=== PATIENT | female | born 1980 | race Caucasian/White ===

== ENCOUNTER 2025-03-05 22:27 | Emergency (ER) | payer MEDICAID, SELFPAY ==
[2025-03-05 22:29] VITALS: BP 145/103; PULSE 98; RESP 22; O2SAT 99
[2025-03-05] MEDS: LORazepam INJ (*CRX) 2 MG/ML VIAL (22:49)
[2025-03-05] MEDS: HALOPERIDOL LACTATE 5 MG/ML VIAL (22:49)
--- NOTE | 2025-03-05 23:00 | PC.NURSE ---
Pt combative and states, I want to kill myself because I am going through withdrawal.
--- NOTE | 2025-03-05 23:06 | PC.NURSE ---
Pt combative, and aggressive towards staff. Unable to redirect patient. Pt medicated per verbal order of MD Strange with 5mg Haldol and 2 ativan IM.
[2025-03-05 23:27] LABS: Basophils Percent Auto 0.6 % (0.2-1.2); Eosinophils Absolute Auto 0.6 K/mm3 (0-0.3); Eosinophils Percent Auto 9.4 % (0-4.4); Hematocrit 39.3 % (37.0-47.0); Hemoglobin 12.5 g/dL (12.0-15.0); Immature Granulocyte Absolute 0.01 K/mm3 (0.00-0.031); Immature Granulocyte Percent A 0.2 % (0-0.5); Lymphocytes Percent Auto 57.1 % (18.3-44.2); Mean Corpuscular HGB Conc 31.8 g/dl (32-36); Mean Corpuscular Hemoglobin 30.8 pg (26-34); Mean Corpuscular Volume 96.8 fl (80-100); Mean Platelet Volume 9.8 fl (7.4-10.4); Monocytes Absolute Auto 0.5 K/mm3 (0.1-0.6); Monocytes Percent Auto 7.8 % (2.6-8.5); Neutrophils Absolute Auto 1.6 K/mm3 (1.3-6.7); Neutrophils Percent Auto 24.9 % (45.5-73.1); Platelet Count Result 229 k/mm3 (150-375); Red Blood Count 4.06 M/mm3 (4.2-5.4); Red Cell Distribution Width 13.5 % (11.5-14.5); White Blood Count 6.3 K/mm3 (4.5-10.0)
[2025-03-05 23:29] LABS: BEDSIDEPREGUCG Negative (Negative)
[2025-03-05 23:33] LABS: Add Urine Microscopic? NO; Appearance Urine Clear (Clear); Bilirubin Urine Negative (Negative); Blood Urine Negative (Negative); Color Urine Yellow (Yellow); Glucose Urine UA Negative (Negative); Ketones Urine Negative (Negative); Leukocyte Esterase Ur Negative LEU/UL (Negative); Nitrate Urine Negative (Negative); Protein Urine Negative (Negative); Specific Grav Ur 1.015 (1.001-1.035)
[2025-03-05 23:39] LABS: Ethanol < 10 mg/dL (<10)
[2025-03-05 23:45] LABS: Alanine Aminotransferase 52 U/L (6-35); Albumin Level 4.3 g/dL (3.5-5.1); Alkaline Phosphatase 92 U/L (38-126); Anion Gap 7 mmol/L (4-12); Aspartate Amino Transferase 43 U/L (14-36); Bilirubin,Total 0.5 mg/dL (0.2-1.3); Blood Urea Nitrogen 9 mg/dL (7-17); Calcium 9.5 mg/dL (8.4-10.2); Carbon Dioxide 22 mmol/L (22-30); Chloride 107 mmol/L (98-107); Estimated Glomerular Filt Rate > 60; Glucose 80 mg/dL (65-110); Potassium 4.2 mmol/L (3.4-5.0); Sodium 136 mmol/L (137-145)
[2025-03-06 00:17] LABS: Barbiturate Screen Urine Negative (Negative); Benzodiazepines Screen Urine Positive (Negative)
[2025-03-06 00:18] LABS: Cocaine Screen Urine Positive (Negative)
[2025-03-06 00:19] LABS: Methadone Screen Urine Positive (Negative); Opiate Screen Urine Negative (Negative); Phencyclidine Screen Urine Negative (Negative)
[2025-03-06 00:20] LABS: Cannabinoid Screen Urine Negative (Negative)
[2025-03-06 00:21] LABS: Amphetamine Screen Urine Negative (Negative)
--- NOTE | 2025-03-06 00:25 | PC.NURSE ---
Per [place] [employer], pt is still in custody and have to be called once pt cleared for discharge.
[2025-03-06 00:53] LABS: Acetaminophen < 10 ug/mL (10-30); Salicylate < 1.0 mg/dL (2-20)
--- OUTSIDE RECORDS SUMMARY | 2025-03-06 01:05 | XMS_ITS | Continuity of Care Document ---
Author Name [facility] Address [address] [place] [address] Organization [facility] Care Team Providers Care Sales Representative [employer] Name Role Phone [facility] Unavailable Unavailable Problems Problem Status Onset Date Problem Type Date of Resolution Comme nts Source Finding related to substance use (finding) Active Condition Abnormal uterine and vaginal bleeding, unspecified Active Diagnosis Nicotine dependence (disorder) Diagnosis
--- OUTSIDE RECORDS SUMMARY | 2025-03-06 01:05 | XMS_ITS | Continuity of Care Document ---
Author Organization [facility] Address [address] [place] [address] Phone Care Team Providers Care Insurance Customer Service Specialist Name Role Phone Anni Jeffers LPC Unavailable Unavailable Allergies, Adverse Reactions, Alerts Substance Reaction Status Criticality No Known Allergies Active No Inform ation Medications Medication Instructions Dosage Effective Dates (start - stop) Status Comments Suboxone 8 mg-[address] 1 film by sublingual route 2 times every day allow to dissolve slowly in mouth without chewing or swallowing 1 film - Active 340b. Two week supply Celexa 20 mg tablet take 1 tablet by oral route every day 20 MG - Active Procedures Procedure Date DRUG TEST PRSMV DIR OPT OBS URINE TEST Not Completed DRUG TEST PRSMV DIR OPT OBS URINE TEST DRUG TEST PRSMV DIR OPT OBS URINE TEST DRUG TEST PRSMV DIR OPT OBS URINE TEST OFFICE/OUTPATIENT VISIT, EST DRUG TEST PRSMV DIR OPT OBS OFFICE/OUTPATIENT VISIT EST Telehealth J DRUG TEST PRSMV DIR OPT OBS DRUG TEST PRSMV DIR OPT OBS PSYCH DIAG EVAL W/MED SRVCS [facility] OFFICE/OUTPATIENT VISIT, EST PSYCH DIAGNOSTIC EVALUATION Not Completed OFFICE/OUTPATIENT VISIT, NEW Medrxyprogester acetate inj URINE TEST Advance Directives Directive Yes / No Effective Date File Name No Information Encounters Encounter Description Practice Location Reason(s) For Visit Diagnoses Date Provider Providers Copied on Encounter [facility], [address], [place], [place], [id number], [place] tel:[phone] [facility] No Information 0 Aury Hutton. [address], [place], [place], [id number], [place]. tel:[phone] [facility], [address], [place], [place], [id number], [place] tel:[phone] [facility] No Information 9 Harpreet Garibay. [address], [id number] [address] [place], [id number], [place]. tel:[phone] [facility], [address], [place], [place], [id number], [place] tel:[phone] [facility] No Information 9 Harpreet Garibay. [address], [id number] [address], [place], [place], [id number], [place]. tel:[phone] Referring Provider: Lani Mullins, [address] [id number] [place], [address]. tel:[phone] [facility], [address], [place], [place], [id number], [place] tel:[phone] [facility] No Information 9 Harpreet Lani. [address], [id number] [address], [place], [place], [id number], [place]. tel:[phone] [facility], [address], [place], [place], [id number], [place] tel:[phone] [facility] No Information Harpreet . [address], [id number] [address], [place], [place], [id number], [place]. tel:[phone] OFFICE/OUTPA TIENT VISIT, EST [facility], [address], [place], [place], [id number], [place] tel:[phone] [facility] Opioid dependence Harpreet . [address], [id number] [address], [place], [place], [id number], [place]. tel:[phone] Referring Provider: Lani Mullins, [address] [id number] [address], [place], [address]. tel:[phone] OFFICE/OUTPA TIENT VISIT EST Telehealth [facility], [address], [place], [place], [id number], [place] tel:[phone] [facility] Opioid dependence Harpreet . [address], [id number] [address], [place], [place], [id number], [place]. tel:[phone] Referring Provider: Lani Mullins, [address] [id number] [address], [place], [address]. tel:[phone] [facility], [address], [place], [place], [id number], [place] tel:[phone] [facility] No Information Harpreet . [address], [id number] [address], [place], [place], [id number], [place]. tel:[phone] PSYCH DIAG EVAL W/MED SRVCS Telehealth [facility], [address], [place], [place], [id number], [place] tel:[phone] [facility] Opioid dependence Harpreet . [address], [id number] [address], [place], [place], [id number], [place]. tel:[phone] Referring Provider: Lani Mullins, [address] [id number] [place], [address]. tel:[phone] [facility], [address], [place], [id number], [place] tel:[phone] [facility] Other substance-in duced deliriumOthe r psychoactive substance dependence, uncomplicate d Mar-0 9 Aury Hutton. [address], [place], [id number], [place]. tel:[phone] Referring Provider: Anni Jeffers, [address], [place], [address]. tel:[phone] OFFICE/OUTPA TIENT VISIT, EST [facility], [address], [place], [id number], [place] tel:[phone] [facility] AMP Physical (chief complaint) Body mass index (BMI) 26.0-26.9, adultTobacco useEncounter for adult health check-upMajo r depressionOp ioid dependence, uncomplicate d Nov-0 9 Cris Cedeno. [address], [id number] [place], [id number], [place]. tel:[phone] Referring Provider: Wilian Lynch, [address] [id number] [place], [address]. tel:[phone] PSYCH DIAGNOSTIC EVALUATION [facility], [address], [place], [id number], [place] tel:[phone] [facility] Severe opioid use disorderMajo r depression Oct-2 9 Earnest Hill. [address], [place], [id number], [place]. tel:[phone] Referring Provider: Liz Tinoco , [address], [place], [address]. tel:[phone] [facility], [address], [place], [id number], [place] tel:[phone] [facility] Other substance-in duced deliriumOthe r psychoactive substance dependence, uncomplicate d 9 Earnest Hill. [address] [facility], [place], [id number], [place]. tel:[phone] [facility], [address], [place], [id number], [place] tel:[phone] [facility] No Information 9 Earnest Hill. [address] [facility] ons [facility] [place], [place], [id number], [place]. tel:[phone] Referring Provider: Liz Tinoco , [address] [place] [address] ons [facility], [place], [address]. tel:[phone] OFFICE/OUTPA TIENT VISIT, NEW [facility], [address], [place], [place], [id number], [place] tel:[phone] [facility] painful menses (chief complaint)Pr ovider Information Hernan Espino PA-C (chief complaint) Obesity, unspecifiedM igraineEncou nter for initial prescription of injectable contracep 6 Srinivas Rodriguez. [address], [id number] 0, [place], [id number], [place]. tel:[phone] Family History Family Member Type Diagnosis Age At Onset Mother Problem (finding) Hepatitis C (Cause Of D eath) Father Problem (finding) drug addiction Father Problem (finding) Hepatitis C Mother Problem (finding) alcoholism Father Problem (finding) alcoholism Payers Payer name Insurance type Covered democrat ID Authoriza tion(s) No Information Social History Type Description Quantity Date Captured Comments Sex Female Smoking Status No Information Sexual Orientation Straight or heterosexual Gender Identity Female Chief Complaint And Reason For Visit No Information Reason For Referral Reason For Referral No Information Plan Of Treatment Date Type Action Status Goal Td vaccine. Due on due Goal Depression scree karissa. Due on due Goal Pap/HPV testing. Due on due Goal Influenza vaccine. Due on Oc due Goal Tdap. Due on due Goal HPV, high+low-risk. Due on O due Goal Diabetes screening. Due on O due Goal Diabetes screening. Due on O due Goal Influenza vaccine. Due on Oc due Goal HPV, high+low-risk. Due on O due Goal Tdap. Due on due Goal Depression scree karissa. Due on due Goal Pap/HPV testing. Due on due Goal Td vaccine. Due on due Goal HPV, high+low-risk. Due on due Goal Pap/HPV testing. Due on due Goal Influenza vaccine. Due on due Goal Td vaccine. Due on due Goal Diabetes screening. Due on A due Goal Depression scree karissa. Due on due Goal Tdap. Due on due Goal HPV, high+low-risk. Due on due Goal Td vaccine. Due on due Goal Tdap. Due on due Goal Depression scree karissa. Due on due Goal Influenza vaccine. Due on due Goal Pap/HPV testing. Due on due Goal Diabetes screening. Due on due Goal Depression scree karissa. Due on due Goal Influenza vaccine. Due on due Goal Td vaccine. Due on due Goal HPV, high+low-risk. Due on due Goal Tdap. Due on due Goal Tobacco cessation counseling completed Goal Depression scree karissa. Due on due Goal Influenza vaccine. Due on due Goal Td vaccine. Due on due Goal HPV, high+low-risk. Due on A due Goal Tdap. Due on due Goal Td vaccine. Due on due Goal HPV, high+low-risk. Due on due Goal Tdap. Due on due Goal Depression scree karissa. Due on due Goal Influenza vaccine. Due on due Goal Influenza vaccine. Due on due Goal Depression scree karissa. Due on due Goal Tdap. Due on due Goal HPV, high+low-risk. Due on due Goal Td vaccine. Due on due Goal Influenza vaccine. Due on due Goal Depression scree karissa. Due on due Goal Tdap. Due on due Goal HPV, high+low-risk. Due on due Goal Td vaccine. Due on 19 due Goal Tobacco cessation counseling completed Goal Dietary manageme nt education, guidance, and counseling completed Goal Depression scree karissa. Due on due Goal Influenza vaccine. Due on due Goal Tdap. Due on due Goal Td vaccine. Due on due Goal HPV, high+low-risk. Due on due Goal Tdap. Due on due Goal Depression scree karissa. Due on due Goal Influenza vaccine. Due on due Goal Td vaccine. Due on due Goal HPV, high+low-risk. Due on due Goal Tdap. Due on due Goal Depression scree karissa. Due on due Goal Influenza vaccine. Due on due Goal Td vaccine. Due on due Goal HPV, high+low-risk. Due on due Goal Dietary manageme nt education, guidance, and counseling completed Future Order: Lab Order Icup Dx 14 Panel Drug Screen (14), Ordered on: Ordered Future Order: Lab Order (7), Or dered on: Ordered Future Order: Lab Order Icup Dx 14 Panel Drug Screen (14), Ordered on: Ordered Future Order: Lab Order (7), Or dered on: Ordered Future Order: Lab Order Icup Dx 14 Panel Drug Screen (14), Ordered on: Ordered Future Order: Lab Order (7), Or dered on: Ordered Future Order: Lab Order CBC (INC LUDES DIFF/PLT) (6399), Ordered on: Ordered Future Order: Lab Order COMPREHE NSIVE METABOLIC PANEL (73200), Ordered on: Ordered Future Order: Lab Order HEMOGLOB IN A1C (496), Ordered on: Ordered Future Order: Lab Order LIPID PA KIMMY (7600), Ordered on: Ordered Future Order: Lab Order TSH, 3RD GENERATION (899), Ordered on: Ordered Future Order: Lab Order VITAMIN D,25-OH,TOTAL,IA ([id number]), Ordered on: Ordered Future Order: Lab Order COMPREHE NSIVE METABOLIC PANEL ([id number]), Ordered on: Ordered Future Order: Lab Order CBC (INC LUDES DIFF/PLT) (6399), Ordered on: Ordered History Of Present Illness Encounter Date Complaint History Of Prese nt Illness AMP Physical The location is N/A. Pt is present today for an AMP physical.Provider notes: Patient presents as a new patient for an exam for the addiction treatment program. painful menses Last menstrual p eriod was on 02/14/2016. Presenting / Initial symptoms include dysmenorrhea. Associated symptoms include acne, back pain, bloating, breast tenderness, decreased libido, difficulty sleeping, menstrual cramping, nausea, migraines and vaginal discharge. Pertinent negatives include alopecia, bleeding between menses, fatigue, hirsutism or hot flashes. Provider Information Hernan Espino PA-C Patient is a 35 y/o female that presents to the clinic for migraines and heavy menstrual bleeding. Patient states that she does not have a current PCP nor an HAND POLISHER.PMH - Viral Meningitis (2000)Surgical History - Cholecystectomy (2009) ; Skin grafts (2002) ; (2002) ; 1/2 right ovary removed (1992)FH - Maternal: Hepatitis C ; Paternal: Alcohol use, COPD, Hepatitis CSH - Tobacco: 1/2ppd ; denies alcohol use ; previous opiod abuser (clean for 17 months)1. Migraines - The patient states that she has migraines at least once a month, and that they have been increasing in number the past couple of months. The patient reports that she was actually in the ER this morning getting treatment for a headache. Patient states that that they start about two weeks before her menses start. The location is frontal lobes, with readitation to temporal lobes. ROS is positive for nausea, dizziness, pressure. Patient states that loud noises and light makes the headaches worse. Rest and a hot shower seems to help some. Patient is currently taking ibuprofen for the pain. 2. Menorrhagia - Patient reports that she has been having heavy, painful periods for the past 1 1/2 years. Patient reports that her periods are regular. Patient states that she is using at least 6 super absorbant tampons each day, usually a couple within 2-3 hours of each other. Patient has to utilize both tampons and pads to help with the bleeding. Patient reports that she has some clear, vaginal discharge that occurs a couple of days before her menses starts. ROS is positive for dysmenorrhagia. Patient denies any pelvic tenderness, dyspareunia, itching or burning. Patient has been on depo in the past, but stopped the injections due to her wanting to get . Patient states that she does smoke 1/2 ppd. Patient states that she had a PAP done last year, and that it came back WNL Functional Status Date Functional Assessmen t No Information Instructions Date Instruction Additional Infor liz Dietary management e ducation, guidance, and counseling Related to Body mass index (BMI) 26.0-26.9, adult Giving encouragement to exercise Related to Body mass index (BMI) 26.0-26.9, adult Start on metoprolol 25mg PO BID Related to Migraine Start on Depo Animal Care Supervisor a injectionFollow-up in three months Related to Encounter for initial prescription of injectable contracep Giving encouragement to exercise Related to Obesity, unspecified Dietary management e ducation, guidance, and counseling Related to Obesity, unspecified Assessments Type Assessment Date No Information Goals Health Concern Goal Type Priority Status Date substance use - I relapsed I want to maintain recovery this time. I need to continue to learn about this Patient Goal New Patient Care Teams Name Effective Dates (start - stop) Status Members No Information
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
--- NOTE | 2025-03-06 02:32 | PC.NURSE ---
CRISIS attempted to talk to pt. Pt was unable to provide necessary information and fell asleep. CRISIS states they will re-attempt shortly.
--- NOTE | 2025-03-06 03:29 | PC.NURSE ---
CRISIS states the pt is too sleepy and they will have to return in the morning.
[2025-03-06 07:00] VITALS: BP 117/81; PULSE 75; RESP 18; TEMP 36.5; O2SAT 100
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
[2025-03-06 09:00] LABS: SARS-CoV-2 RNA PCR Negative (Negative)
== END 2025-03-06 08:45 | disposition left against medical advice (07) ==
PROVIDERS: Emergency Provider Emergency Medicine
DX: F19.10 Other psychoactive substance abuse, uncomplicated (principal); Z11.59 Encounter for screening for other viral diseases
CPT/HCPCS: 36415; 80053; 80143; 80179; 80307; 81003; 81025; 82077; 84443; 85025; 87635; 99284; J1630; J2060